=== PATIENT | male | born 2000 | race Two or more races ===

== ENCOUNTER 2021-11-15 21:57 | Emergency (ER) | payer OTHER ==
[~2021-11-15] VITALS: Ht 195.6 cm; Wt 104.3 kg
== END 2021-11-15 23:43 | disposition home or self-care (01) ==
LOC: ER 21:57
DX: H60.93 Unspecified otitis externa, bilateral (principal); H72.90 Unspecified perforation of tympanic membrane, unspecified ear; H92.03 Otalgia, bilateral

== ENCOUNTER 2021-11-18 20:00 | Emergency (ER) | payer OTHER ==
[~2021-11-18] VITALS: Ht 195.6 cm; Wt 108.9 kg
[2021-11-19] MEDS ORDERED: CEPHALEXIN500 MG PO (01:41)
[2021-11-19] MEDS ORDERED: KETO10TA2 PO (01:41)
== END 2021-11-19 01:55 ==
LOC: ER 20:00
DX: H66.92 Otitis media, unspecified, left ear (principal)